=== PATIENT | female | born 1995 | race Caucasian/White ===

== ENCOUNTER 2019-03-31 04:15 | Emergency (ER) | payer BC ==
[2019-03-31] MEDS ORDERED: OXYCODONE-ACETAMINOPHEN 5-325 MG TABLET PO ONE (04:52)
[2019-03-31] MEDS ORDERED: ONDANSETRON 4 MG TAB.RAPDIS PO ONE (04:52)
[2019-03-31] MEDS ORDERED: DIPH/PERTUSS(ACELL)/TETANUS VAC/PF 0.5 ML SYR (>=10YO) IM ONE (04:52)
[2019-03-31] MEDS ORDERED: AMOXICILLIN TR/POT CLAVULANATE 500-125 MG TAB PO ONE (04:52)
[2019-03-31] MEDS ORDERED: AMOXICILLIN TRIHYDRATE 500 MG CAPSULE PO ONE (04:52)
[2019-03-31] MEDS ORDERED: LIDOCAINE 1%/EPINEPHRINE INJ 20 ML VIAL INJ ONE (04:53)
--- NOTE | 2019-03-31 05:02 | ER Document Report ---
ED Animal Bite - General Chief Complaint: Dog Bite Stated Complaint: DOG BITE Time Seen by Provider: 03/31/19 04:47 Primary Care Provider: MOJGAN BRADY MD [ACTIVE STAFF] - Follow up as needed Notes: Patient is a 23-year-old female that comes to the emergency department for chief complaint of dog bite to the face. The dog is owned by her significant other, it is a pit bull, it bit her in the face this evening. Dog is vaccinated, patient is not up-to-date on her tetanus. Patient denies any other injuries. Patient denies any past medical history, denies , denies any daily medications. TRAVEL OUTSIDE OF THE [place] IN LAST 30 DAYS: No - Related Data Allergies/Adverse Reactions: No Known Allergies Allergy (Unverified 03/31/19 05:23) Past Medical History - General Information source: Patient - Social History Smoking Status: Never Smoker Drug Abuse: None Lives with: Family Family History: Reviewed & Not Pertinent Surgical Hx: Negative - Immunizations Immunizations up to date: Yes Hx Diphtheria, Pertussis, Tetanus Vaccination: Yes Review of Systems - Review of Systems Constitutional: No symptoms reported EENT: No symptoms reported Cardiovascular: No symptoms reported Respiratory: No symptoms reported Gastrointestinal: No symptoms reported Genitourinary: No symptoms reported Female Genitourinary: No symptoms reported Musculoskeletal: See HPI Skin: See HPI Hematologic/Lymphatic: No symptoms reported Neurological/Psychological: No symptoms reported Physical Exam - Vital signs Vitals: Temp Pulse Resp BP Pulse Ox 98.1 F 93 18 145/94 H 98 03/31/19 04:23 03/31/19 04:23 03/31/19 04:23 03/31/19 04:23 03/31/19 04:23 - Notes Notes: GENERAL: Alert, interacts well. HEAD: Normocephalic, atraumatic. EYES: Pupils equal, round, and reactive to light. Extraocular movements intact. ENT: Oral mucosa moist, tongue midline. Very extensive wounds from the bite, there are multiple lacerations through the vermilion border of the lip, the left inferior aspect of the lip is completely avulsed all the way to the corner of the lip causing a deformity in the lip/smile. There are multiple puncture wounds over the chin which are superficial. Abrasions present over the left side of the face which are superficial. Oropharynx unremarkable. Airway patent. Nares patent, no nasal septal hematoma, TM's intact. NECK: Full range of motion. Supple. Trachea midline. LUNGS: Clear to auscultation bilaterally, no wheezes, rales, or rhonchi. No respiratory distress. HEART: Regular rate and rhythm. No murmur ABDOMEN: Soft, non-tender. Non-distended. Bowel sounds present in all 4 quadrants. GENITOURINARY: Deferred EXTREMITIES: Moves all 4 extremities spontaneously. No edema, normal radial and dorsalis pedis pulses bilaterally. No cyanosis. BACK: no cervical, thoracic, lumbar midline tenderness. No saddle anesthesia, normal distal neurovascular exam. Moves all extremities in full range of motion. NEUROLOGICAL: Alert and oriented x3. Normal speech. Cranial nerves II through XII grossly intact. PSYCH: Normal affect, normal mood. SKIN: Warm, dry, normal turgor. No rashes or lesions noted. Course - Re-evaluation Re-evalutation: Unfortunately patient has very extensive wounds from the bite, there are multiple lacerations through the vermilion border of the lip, the left inferior aspect of the lip is completely avulsed all the way to the corner of the lip causing a deformity that will need to be pulled forward. There are also many tiny pieces of the lip that will need to be involved in the repair especially over the lateral aspect. However there does not appear to be any missing tissue. It does appear to align. Because of the extensive wounds I offered the patient be transferred to a tertiary center to have plastics repair. However patient declined this, she requests to have the wounds repaired here and she can follow-up if needed. The wounds were irrigated extensively before the repair. I discussed with Dr. Church. The repair did go well, patient tolerated very well, placed on antibiotics, pain medication, discussed care, follow-up, and strict return precautions. Patient states understanding and agreement. - Vital Signs Vital signs: Temp Pulse Resp BP Pulse Ox 98.1 F 93 18 145/94 H 98 03/31/19 04:23 03/31/19 04:23 03/31/19 04:23 03/31/19 04:23 03/31/19 04:23 Procedures - Laceration/Wound Repair lower lip #1 Wound length (cm): 2 Wound's Depth, Shape: Irregular, Flap Laceration pre-procedure: Sterile PPE donned, Sterile drapes applied, Shur-Clens applied Anesthetic type: 1% Lidocaine w/epi Volume Anesthetic (mLs): 2 Wound explored: Clean, No foreign body removed Irrigated w/ Saline (mLs): 50 Wound Repaired With: Sutures Suture Size/Type: 6:0, Nylon Number of Sutures: 4 Post-procedure NV exam normal: Yes Complications: No lower lip #2 Wound length (cm): 1.5 Wound's Depth, Shape: Irregular, Flap Laceration pre-procedure: Sterile PPE donned, Sterile drapes applied, Shur-Clens applied Anesthetic type: 1% Lidocaine w/epi Volume Anesthetic (mLs): 2 Wound explored: Clean, No foreign body removed Irrigated w/ Saline (mLs): 50 Wound Repaired With: Sutures Suture Size/Type: 6:0, Nylon Number of Sutures: 3 Layer Closure?: No Post-procedure NV exam normal: Yes Complications: No lower lateral lip Wound length (cm): 3 Wound's Depth, Shape: Irregular, Flap, Stellate Laceration pre-procedure: Sterile PPE donned, Sterile drapes applied, Shur-Clens applied Anesthetic type: 1% Lidocaine w/epi Volume Anesthetic (mLs): 3 Wound explored: Clean, No foreign body removed Irrigated w/ Saline (mLs): 100 Wound Repaired With: Sutures Suture Size/Type: 6:0, Nylon Number of Sutures: 9 Layer Closure?: No Post-procedure NV exam normal: Yes Complications: No Discharge - Discharge Clinical Impression: Dog bite Qualifiers: Encounter type: initial encounter Qualified Code(s): W54.0XXA - Bitten by dog, initial encounter Lip laceration Qualifiers: Encounter type: initial encounter Qualified Code(s): S01.511A - Laceration without foreign body of lip, initial encounter Facial laceration Qualifiers: Encounter type: initial encounter Qualified Code(s): S01.81XA - Laceration without foreign body of other part of head, initial encounter Condition: Stable Disposition: HOME, SELF-CARE Additional Instructions: The sutures should remain for at least a week and then need to be removed at a medical facility. Keep clean, clean with soap and water, dab dry, you can apply topical antibiotics to the area. Take the antibiotics as prescribed to completion. Take pain medication if needed. Consider follow-up with plastics referral because of the extensive wounds you sustained to your face/lip. Return immediately if you worsen including pain, increased swelling or redness, discolored discharge, fever, or any other concerning or worsening symptoms. Prescriptions: Amox Tr/Potassium Clavulanate [Augmentin 875-125 Tablet] 1 tab PO BID 7 Days #14 tablet Oxycodone HCl/Acetaminophen [Percocet 5-325 mg Tablet] 1 - 2 tab PO TID #12 tablet Forms: Return to Work Referrals: MOJGAN BRADY MD [ACTIVE STAFF] - Follow up as needed
[2019-03-31 07:23] VITALS: BP 135/85
== END 2019-03-31 07:23 | disposition home or self-care (01) ==
LOC: ER 04:15
DX: S01.511A Laceration without foreign body of lip, initial encounter (principal); S01.81XA Laceration without foreign body of other part of head, initial encounter; W54.0XXA Bitten by dog, initial encounter; Z23 Encounter for immunization
CPT/HCPCS: 99282; 90715; 12014; S0119; J3490